=== PATIENT | female | born 1985 | race Caucasian/White ===

== ENCOUNTER 2016-11-01 17:27 | Emergency (ER) | payer SELFPAY ==
[2016-11-01] MEDS ORDERED: 0.9 % SODIUM CHLORIDE 1,000 ML IV ONE ×2 (17:44→19:07)
--- NOTE | 2016-11-01 18:46 | ED Physician Documentation ---
General Adult - HISTORIAN Historian: patient - HPI Stated Complaint: lower abd pain and lower back pain Chief Complaint: General Adult Onset: days ago (3) Timing: still present Severity: moderate Further Comments: yes (Pt is a 31 yo [address] her [address] to [facility] for drug and alcohol rehab. Pt states that she has low abd pain/suprapubic pain and back pain. Pt has had dysuria, some nausea, and says that she thinks she is dehydrated. Pt states she has had normal bm's. Pt states that she has been under a lot of stress and that her daughter attempted suicide about a month ago. ) - ROS CONST: weakness, other (malaise) EYES/ENT: none CVS/RESP: none GI/: nausea MS/SKIN/LYMPH: none NEURO/PSYCH: anxiety - PAST HX Past History: other (anxiety/depression, substance abuse) Surgeries/Procedures: other (appendectomy) Allergies/Adverse Reactions: Allergies Allergy/AdvReac Type Severity Reaction Status Date / Time No Known Allergies Allergy Verified 11/01/16 17:49 Home Medications: Ambulatory Orders Medication Instructions Recorded Sertraline HCl [Zoloft] 50 mg PO DAILY 11/01/16 clonazePAM [Klonopin] 0.25 mg PO BID 11/01/16 - SOCIAL HX Smoking History: cigarettes Alcohol Use: heavy Drug Use: methamphetamines - FAMILY HX Family History: No - VITAL SIGNS Vital Signs: Vital Signs Temp Pulse Resp BP Pulse Ox 97.5 F L 81 16 105/74 97 11/01/16 17:39 11/01/16 17:39 11/01/16 17:39 11/01/16 17:39 11/01/16 17:39 - REVIEWED ASSESSMENTS Nursing Assessment Reviewed: Yes Vitals Reviewed: Yes Progress - Progress Progress: 1 L NS IVF x 2 Zofran 4 mg IV UDS non-negative for methamphetamine, benzodiazepine, methadone. Pt states she last used methamphetamine 3 days ago. She is going to [facility] primarily for alcohol abuse, she says. Discharge to [facility]. ED Results Lab/Radiology - Orders Orders: ED Orders Category Date Time Status Place Saline Lock/IV Now Care 11/01/16 17:44 Active UA [URINALYSIS] Routine Lab 11/01/16 Ordered 0.9 % Sodium Chloride [Normal Saline] 1,000 ml Med 11/01/16 17:44 Discontinued IV Q1H General Adult Physical Exam - PHYSICAL EXAM GENERAL APPEARANCE: mild distress EENT: eye inspection normal, ENT inspection normal, pharynx normal NECK: normal inspection, supple RESPIRATORY: no resp distress, chest non-tender, breath sounds normal CVS: reg rate & rhythm, heart sounds normal ABDOMEN: soft, no distension, tenderness (diffuse lower abd tenderness). No: rebound, guarding BACK: normal inspection SKIN: warm/dry, normal color EXTREMITIES: non-tender, normal range of motion, no evidence of injury NEURO: oriented X3, motor nml, sensation nml, other (tired appearing, ? depression) Discharge Clincal Impression: Nausea, Dehydration, polysubstance abuse Referrals: Primary Doctor,No [Primary Care Provider] - Home Medications: Ambulatory Orders Sertraline HCl [Zoloft] 50 mg PO DAILY 11/01/16 clonazePAM [Klonopin] 0.25 mg PO BID 11/01/16 Condition: Stable Disposition: 01 HOME, SELF-CARE Decision to Admit: NO Decision Time: 21:25
[2016-11-01 19:49] LABS: BASOPHILS % 0.5 (0.0-1.5); EOSINOPHILS % 4.4 % (0.0-6.8); LYMPHOCYTES # 2.1 # k/uL (0.6-4.0); MEAN CORPUSCULAR HEMOGLOBIN 31.6 pg (28.0-34.0); MONOCYTES # 0.5 # k/uL (0.0-0.9); MONOCYTES % 10.3 % (0.0-11.0); NEUTROPHILS # 2.2 # k/uL (1.4-7.7)
[2016-11-01 19:59] LABS: eGFR (African) > 60; eGFR (Non-African) > 60
[2016-11-01] MEDS ORDERED: POTASSIUM CHLORIDE 20 MEQ TABLET.ER PO ONE (20:27)
[2016-11-01 20:37] LABS: AMPHETAMINE NON NEGATIVE ng/mL (<1000); BARBITURATES NEGATIVE ng/mL (<300); CANNABINOIDS NEGATIVE ng/mL (<50); COCAINE NEGATIVE ng/mL (<150); METHAMPHETAMINE NON NEGATIVE ng/mL (<1000); METHYLENEDIOXYMETHAMPHETAMINE NEGATIVE ng/mL (<500)
[2016-11-01] MEDS ORDERED: ONDANSETRON HCL/PF 4 MG/ 2ML VIAL IVP ONE (20:53)
[2016-11-01 22:36] VITALS: BP 110/70
[2016-11-02 05:46] LABS: APPEARANCE,URINE CLEAR (CLEAR); COLOR,URINE YELLOW (YELLOW); OCCULT BLOOD,URINE TRACE-LYSED (NEGATIVE)
== END 2016-11-01 22:04 | disposition home or self-care (01) ==
LOC: ED 17:27
DX: F19.10 Other psychoactive substance abuse, uncomplicated (principal); R19.7 Diarrhea, unspecified; E86.0 Dehydration
CPT/HCPCS: 80053; 80325; 80346; 80359; 80360; 80377; 81002; 82150; 85025; A9270; J2405; J7030; 12001; 99283; G0477; G0480; S1016